=== PATIENT | female | born 1975 | race Caucasian/White ===

== ENCOUNTER → 2017-10-24 08:52 | Outpatient (REF) | payer OTHER, SELFPAY ==
[2017-10-24 13:06] LABS: Hemoglobin A1C 5.6 % (4.5-6.2)
[2017-10-24 13:11] LABS: TSH (W/Ref FT4) 8.23 uIU/mL (0.358-3.74)
[2017-10-24 13:31] LABS: FREE T4 1.04 ng/dL (0.76-1.46)
== END ==
LOC: NCHCN 08:52
PROVIDERS: PCP Family Medicine; Visit Provider Family Medicine
DX: E03.9 Hypothyroidism, unspecified (principal); R73.9 Hyperglycemia, unspecified
CPT/HCPCS: 83036; 84439; 84443